=== PATIENT | female | born 1990 | race Two or more races ===

== ENCOUNTER 2025-03-26 19:13 | Emergency (ER) | payer BC, OTHER ==
[~2025-03-26] VITALS: Ht 157.5 cm; Wt 86.3 kg
--- NOTE | 2025-03-26 19:18 | ED.PDOC ---
Back pain HPI HPI Comments C/C of fall causing right foot pain. Pt states she was walking up stair, missed a step and twisted right ankle inward. Non-pitting edema noted. (+) CSM. Denies LOC. VSS. NKDA Time Seen by MD: 19:15 Reviewed Notes: Nurses Notes, Medications, Allergies Allergies: Coded Allergies: NO KNOWN ALLERGIES (Unverified , 03/26/25) Information Source: Patient Past Medical History PAST MEDICAL HISTORY: Denies Surgical History: Denies all surgeries CONTINUOUS IMPROVEMENT MANAGER History: No Pertinent CONTINUOUS IMPROVEMENT MANAGER History Family History Family History: Reviewed,noncontributory to illness Social History Smoker: Non-Smoker Alcohol: Denies ETOH Use Drugs: Denies Drug Use Constitutional: denies: chills, diaphoresis, fatigue, fever, malaise, sweats, weakness, others EENTM: denies: blurred vision, double vision, ear bleeding, ear discharge, ear drainage, ear pain, ear ringing, eye pain, eye redness, hearing loss, mouth pain, mouth swelling, nasal discharge, nose bleeding, nose congestion, nose pain, photophobia, tearing, throat pain, throat swelling, voice changes, others Respiratory: denies: cough, hemoptysis, orthopnea, SOB at rest, shortness of breath, SOB with excertion, stridor, wheezing, others Cardiovascular: denies: chest pain, dizzy spells, diaphoresis, Dyspnea on exertion, edema, irregular heart beat, left arm pain, lightheadedness, palpitations, PND, syncope, others Gastrointestinal: denies: abdomen distended, abdominal pain, blood streaked bowels, constipated, diarrhea, dysphagia, difficulty swallowing, hematemesis, melena, nausea, poor appetite, poor fluid intake, rectal bleeding, rectal pain, vomiting, others Genitourinary: denies: abnormal vagina bleeding, burning, dyspareunia, dysuria, flank pain, frequency, hematuria, incontinence, pain, , vagina discharge, urgency, others Neurological: denies: dizziness, fainting, headache, left sided numbness, left sided weakness, numbness, paresthesia, pre-existing deficit, right sided numbnes s, right sided weakness, seizure, speech problems, tingling, tremors, weakness, others Musculoskeletal: reports: joint pain, joint swelling; denies: back pain, gout, muscle pain, muscle stiffness, neck pain, others Integumetry: denies: bruises, change in color, change in hair/nails, dryness, laceration, lesions, lumps, rash, wounds, others Allergic/Immunocompromised: denies: Difficulty Healing, Frequent Infections, Hives, Itching, others Hematologic/Lymphatic: denies: anemia, blood clots, easy bleeding, easy bruising, swollen glands, others Endocrine: denies: excessive hunger, excessive sweating, excessive thirst, excessive urination, flushing, intolerance to cold, intolerance to heat, unexplained weight gain, unexplained weight loss, others Psychiatric: denies: anxiety, bipolar disorder, depression, hopeless, panic disorder, schizophrenia, sleepless, suicidal, others Physical Exam General Appearance: No Apparent Distress, Normal HEENT: Pharynx Normal Neck: Full Range of Motion, Non-Tender Respiratory: Lungs Clear, No Respiratory Distress, Normal Breath Sounds Cardiovascular: No Edema, No Murmur, Normal Peripheral Pulses, Regular Rate/Rhythm Breast Exam: Deferred Gastrointestinal: Non Tender, Soft Genitalia: Deferred Pelvic: Deferred Rectal: Deferred Extremities: Normal capillary refill, Normal inspection, Normal range of motion, Non-tender, No pedal edema Musculoskeletal : Location: Right Extremity Location: Ankle Apperance: Normal Neurologic: Alert, license issuer II-XII nml as Tested, No Motor Deficits, Normal Affect, Normal Mood, No Sensory Deficits Cerebellar Function: Normal Reflexes: Normal Skin: Dry, Normal Color, Warm Lymphatic: No Adenopathy Was a procedure done? Was a procedure done?: No Back Pain Differential Dx Differential Diagnosis: Fracture, Musculoskeletal Pain X-Ray, Labs, Meds, VS Vital Signs Date Time Temp Pulse Resp B/P (MAP) Pulse Ox O2 Delivery O2 Flow Rate FiO2 03/26/25 19:14 97.7 91 16 123/70 (87) 97 97.7 X-Ray, Labs, Meds, VS Comment Ankle x-ray shows no acute fractures osseous lesions subluxations or dislocations. This is likely a sprain. Patient placed in stirrup ankle splint and crutches script 800 of ibuprofen to patient's pharmacy on file advised to take medication as prescribed side effects discussed. We discussed rice. Advised to follow up with her PCP in 2-3 days as necessary consider repeat x-ray or further imaging such as MRI if symptoms persist. ER return precautions patient indicates understanding and agrees with discharge plan of care. Time of 1ST Reevaluation: 19:17 Reevaluation 1ST: Unchanged Time of 2ND Reevaluation: 20:29 Reevaluation 2ND: Improved Patient Education/Counseling: Diagnosis, Treatment, Prognosis, Need For Follow Up Family Education/Counseling: No Family Present SEPSIS Sepsis Screen Physician Orders R Foot 3 View Xray (03/26/25 19:39) Crutches And Crutch Training (03/26/25 20:30) Splints (03/26/25 ) Vital Signs Date Time Temp Pulse Resp B/P (MAP) Pulse Ox O2 Delivery O2 Flow Rate FiO2 03/26/25 19:14 97.7 91 16 123/70 (87) 97 97.7 Departure 1 Departure Time of Disposition: 20:29 Impression: Primary Impression: Sprain of right ankle Qualified Codes: S93.401A - Sprain of unspecified ligament of right ankle, initial encounter Disposition: HOME / SELF CARE / HOMELESS Condition: Stable e-Prescriptions Ibuprofen (Ibuprofen) 800 Mg Tab 800 MG PO Q8HP PRN for 5 Days, #15 TAB Prov: SAMINA WILCOX 03/26/25 Discharged With: Self Critical Care Note Critical Care Time?: No Stability Stability form required: SAMINA Trevino Mar 26, 2025 19:17
--- NOTE | 2025-03-26 20:22 | DVH ---
CLINICAL INDICATION: Fall Injury TECHNIQUE: 3 radiographic views of the right foot were obtained. Comparison: None FINDINGS/IMPRESSION: There is no evidence of acute fracture or dislocation. The visualized joint space is well maintained. The alignment is anatomical. There is no radiopaque foreign body. HS:Y
[2025-03-26] MEDS ORDERED: IBUP-1456 PO (20:33)
[2025-03-26 21:11] VITALS: BP 124/77; PULSE 103; RESP 18; TEMP 97.5; O2SAT 96
== END 2025-03-26 21:13 | disposition home or self-care (01) ==
LOC: ER 19:19
DX: S93.401A Sprain of unspecified ligament of right ankle, initial encounter (principal); X58.XXXA Exposure to other specified factors, initial encounter; Y93.01 Activity, walking, marching and hiking; Y92.89 Other specified places as the place of occurrence of the external cause; Y99.8 Other external cause status
CPT/HCPCS: 29515; 73630